=== PATIENT | female | born 2000 | race African-American/Black ===

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

== ENCOUNTER 2023-11-23 08:39 | Emergency (ER) | payer BC, SELFPAY | END 2023-11-23 09:00 | disposition home or self-care (01) | LOC: BURERS 08:39 | DX: J06.9 Acute upper respiratory infection, unspecified (principal); Z55.6 Problems related to health literacy | CPT/HCPCS: 99283 ==

== ENCOUNTER 2024-04-01 21:24 | Emergency (ER) | payer MEDICAID, OTHER, SELFPAY ==
[2024-04-01 21:44] LABS: Bilirubin Negative (Negative); Blood, Urine Negative (Negative); Clarity Clear (Clear); Glucose, Urine (Dipstick) Negative (Negative); Ketone, Urine Negative (Negative); Leukocyte Trace (Negative); Nitrite Negative (Negative); Protein, Urine (Dipstick) Negative (Neg-Trace); Urobilinogen 0.2 mg/dL (Less than 2); pH, Urine 5.5 (5.0-9.0)
[2024-04-01 21:45] LABS: Specific Gravity, Urine 1.028 (1.002-1.036)
[2024-04-01 21:49] LABS: Bacteria/HPF 1+ HPF (None Seen); CAUTI Indications for Culture Pelvic or flank pain; RBC/HPF None Seen HPF (0-3); Urine Culture Reflex No No
== END 2024-04-01 21:58 | disposition home or self-care (01) ==
LOC: BURERS 21:24
DX: O9A.211 Injury, poisoning and certain other consequences of external causes complicating pregnancy, first trimester (principal); S30.0XXA Contusion of lower back and pelvis, initial encounter; O23.91 Unspecified genitourinary tract infection in pregnancy, first trimester; N39.0 Urinary tract infection, site not specified; W00.0XXA Fall on same level due to ice and snow, initial encounter; Z3A.08 8 weeks gestation of pregnancy
CPT/HCPCS: 81001; 99283

== ENCOUNTER 2024-10-22 23:07 | Emergency (ER) | payer OTHER ==
[2024-10-22 23:50] LABS: Glucose, Urine (Dipstick) Negative (Negative); Leukocyte Moderate (Negative); Protein, Urine (Dipstick) Negative (Neg-Trace); Specific Gravity, Urine 1.020 (1.005-1.030)
[2024-10-23] LABS: CAUTI Indications for Culture Dysuria,urgency,freq; RBC/HPF 0-3 HPF (0-3)
[2024-10-23 00:01] LABS: Bacteria/HPF 2+ HPF (None Seen)
[2024-10-23 00:02] LABS: Urine Culture Reflex Yes Yes
[2024-10-23 15:23] LABS: Chlam.trachomatis by PCR,Urine Not Detected (NotDetected); GC N.gonorrhoeae PCR,UrineVOID Not Detected (NotDetected)
== END 2024-10-23 00:44 | disposition home or self-care (01) ==
LOC: BURERS 23:07
DX: O23.43 Unspecified infection of urinary tract in pregnancy, third trimester (principal); N39.0 Urinary tract infection, site not specified; O10.913 Unspecified pre-existing hypertension complicating pregnancy, third trimester; Z3A.37 37 weeks gestation of pregnancy
CPT/HCPCS: 81001; 87086; 87491; 87591; 99283